=== PATIENT | male | born 1970 | race Caucasian/White ===

== ENCOUNTER 2017-04-29 12:11 | Emergency (ER) | payer SELFPAY ==
[~2017-04-29] VITALS: Ht 182.9 cm; Wt 77.2 kg
[~2017-04-29 12:11] MED LIST: FLEXERIL OR; ULTRAM50 M1 OR
[2017-04-29] MEDS ORDERED: EPIPEN 2-P0.3 MG/0.3 IM (15:50)
[2017-04-29] MEDS ORDERED: PREDNISONE50 MG PO (15:50)
[2017-04-29 16:47] VITALS: BP 114/66
== END 2017-04-29 16:55 | disposition home or self-care (01) | DRG 916 ==
LOC: ED 12:11
DX: T78.2XXA Anaphylactic shock, unspecified, initial encounter (principal); T78.40XA Allergy, unspecified, initial encounter; Y92.89 Other specified places as the place of occurrence of the external cause

== ENCOUNTER 2022-01-17 12:00 | Emergency (ER) | payer SELFPAY ==
[2022-01-17] VITALS (10 sets, daily range): BP systolic 111–129; BP diastolic 64–80
[~2022-01-17] VITALS: Ht 182.9 cm; Wt 73.4 kg
[~2022-01-17 12:00] MED LIST changes: +EPIPEN 2-P0.3 MG/0.3 IM; +PREDNISONE50 MG PO
[2022-01-17] MEDS ORDERED: SAW PALMETTO PO (12:26)
[2022-01-17] MEDS ORDERED: MACA500 MG PO (12:26)
[2022-01-17] MEDS ORDERED: GLUCOSAMINE CHO1 CA3 PO (12:27)
[2022-01-17] MEDS ORDERED: CENTRUM SILVER PO (12:27)
[2022-01-17] MEDS ORDERED: [UNRECOGNIZED DRUG - OTHER] PO (12:29)
[2022-01-17] MEDS ORDERED: SODIUM CHLORI PO (12:29)
[2022-01-17 12:34] LABS: HEMATOCRIT 39.1 % (39.0-50.0); IMMATURE GRANULOCYTES 0.8 % (0.0-5.0); MEAN CELL VOLUME 94.4 fL CALC (80.0-100.0); MEAN CORPUSCULAR HGB 33.8 pG CALC (26.0-32.0); MEAN CORPUSCULAR HGB CONC 35.8 g/dL CAL (32.0-36.0); NEUT# 9.59 thou/uL (1.82-7.42); RED BLOOD COUNT 4.14 mill/uL (4.70-6.10); RED CELL DISTRI WIDTH 11.4 % (11.5-15.5)
[2022-01-17 12:43] LABS: ALBUMIN 4.6 g/dL (3.2-5.0); ALKALINE PHOSPHATASE 52 u/l (38-126); ANION GAP 14 (6-22 (CALC)); BILIRUBIN, TOTAL 0.6 mg/dL (0.0-1.4); BUN 8 mg/dL (9-20); BUN/CREATININE RATIO 8 (12-20 (CALC)); CARBON DIOXIDE 25 mmol/l (22-30); CHLORIDE 97 mmol/l (95-108); GFR FOR AFR.AMER. > 60 ML/MIN (>=60 (CALC)); GFR OTHER RACES > 60 ML/MIN (>=60 (CALC)); POTASSIUM 3.8 mmol/l (3.5-5.1); SGOT/AST 34 u/l (17-59); SODIUM 132 mmol/l (137-146); TOTAL PROTEIN 7.5 g/dL (6.3-8.2)
[2022-01-17 15:31] LABS: URINE BILIRUBIN - DIPSTICK NEGATIVE (NEGATIVE); URINE BLOOD DIPSTICK TRACE-INTACT (NEGATIVE); URINE COLOR YELLOW; URINE GLUCOSE - DIPSTICK NEGATIVE (NEGATIVE); URINE KETONE NEGATIVE (NEGATIVE); URINE LEUK ESTERASE NEGATIVE (NEGATIVE); URINE PH 6.5 (4.5-8.0); URINE PROTEIN - DIPSTICK NEGATIVE (NEG-TRACE); URINE UROBILINOGEN - DIPSTICK 0.2 E.U./dL (0.2)
[2022-01-17 15:34] LABS: URINE NITRITE - DIPSTICK NEGATIVE (Negative)
[2022-01-17] MEDS ORDERED: MECLIZINE 2525 MG PO (16:49)
== END 2022-01-17 17:30 | disposition home or self-care (01) | DRG 149 ==
LOC: ED 12:00
PROVIDERS: Family Medicine; Physician Assistant Surgical
DX: R42 Dizziness and giddiness (principal); R19.7 Diarrhea, unspecified